=== PATIENT | male | born 1950 | race Two or more races ===

== ENCOUNTER 2019-04-16 15:02 | Inpatient (IN) | payer MEDICARE, MEDICAID ==
[~2019-04-16] VITALS: Ht 167.6 cm; Wt 89.4 kg
--- NOTE | 2019-04-16 15:21 | NUR ---
BIB DAUGHTER C/O CHEST PRESSURE x 2 DAYS RADIATING TO UPPER BACK. 6/10 PS. TO ER BED 2, HOOKED TO WEIGHT SHIFTER, CHANGED TO HOSPITAL GOWN, PROVIDED W WARM BLANKET , PATIENT AOX4 , BREATHING EVEN AND UNLABORED. AWAITING MD PARMAR.
[2019-04-16] MEDS ORDERED: ASPIRIN 81 MG TAB.CHEW PO ONE (15:30)
[2019-04-16] MEDS ORDERED: MORPHINE SULFATE INJ 2 MG/ML DISP.SYRIN IV ONE (15:30)
[2019-04-16] MEDS ORDERED: ASPIRIN 81 MG TAB.CHEW ONE ×2 (15:40→15:44)
[2019-04-16] MEDS ORDERED: MORPHINE SULFATE INJ 2 MG/ML DISP.SYRIN ONE (15:40)
[2019-04-16 15:42] LABS: BASOPHILS % (AUTO) 0.7 % (0.0-2.0); HEMATOCRIT 44 % (39-51); HEMOGLOBIN 14.7 g/dL (13.5-17.5); LYMPHOCYTES # (AUTO) 1.6 /CMM (0.8-4.8); LYMPHOCYTES % (AUTO) 26.5 % (20.0-44.0); MEAN CORPUSCULAR HGB CONC 34 g/dl (31.0-36.0); MEAN CORPUSCULAR VOLUME 101 fL (80-96); MONOCYTES # (AUTO) 0.6 /CMM (0.1-1.30); NEUTROPHILS # (AUTO) 3.6 /CMM (1.8-8.9); NEUTROPHILS % (AUTO) 60.8 % (43.0-81.0); PLATELET COUNT (AUTO) 209 /CMM (150-450); RED BLOOD CELL COUNT(AUTO) 4.33 MIL/uL (4.5-6.0); WHITE BLOOD COUNT (AUTO) 5.8 K/uL (4.3-11.0)
[2019-04-16 15:58] LABS: D-DIMER 0.48 mg/L(FEU (0.17-0.50)
[2019-04-16 16:03] LABS: CALCIUM, SERUM 8.6 mg/dL (8.5-10.1); CARBON DIOXIDE 28 mmol/L (21-32); CHLORIDE 101 mmol/L (98-107); CREATININE 0.8 mg/dL (0.6-1.3); GLUCOSE 100 mg/dL (74-106); POTASSIUM 3.7 mmol/L (3.5-5.1); SODIUM SERUM 140 mmol/L (136-145); UREA NITROGEN, BLOOD 11 mg/dL (7-18)
[2019-04-16 16:15] LABS: ALANINE AMINOTRANSFERASE 85 U/L (12-78); ALBUMIN 3.8 g/dL (3.4-5.0); ALKALINE PHOSPHATASE 75 U/L (46-116); ASPARTATE AMINOTRANSFERASE 54 U/L (15-37); B-TYPE NATRIURETIC PEPTIDE 126 PG/ML (0-125); BILIRUBIN,DIRECT 0.1 mg/dL (0.0-0.2); BILIRUBIN,TOTAL 0.4 mg/dL (0.2-1.0); TOTAL PROTEIN, SERUM 8.2 g/dL (6.4-8.2)
[2019-04-16] MEDS ORDERED: CT SWABBABLE VALVE TRANS SET 1 EA INFUS.SET MC ONE (16:17)
[2019-04-16] MEDS ORDERED: IOHEXOL-300 100 ML VIAL IV ONE (16:17)
[2019-04-16] MEDS ORDERED: IV NS 0.9% 250 ML IV ONE (16:18)
--- NOTE | 2019-04-16 16:22 | NUR ---
patient in bed, awake, denies chest pain. hooked to monitor, noted w elevated blood pressure. made md aware. will continue to monitor accordingly. kept safe, warm and comfortable.
[2019-04-16] MEDS: LISINOPRIL (10MG) 10 MG TABLET PO SCH (17:20)
--- NOTE | 2019-04-16 18:28 | NUR ---
PANEL PEDIGREE RESEARCHER PAGED THRU EXCHANGE
--- NOTE | 2019-04-16 18:34 | NUR ---
GAS DISTRIBUTION SUPERVISOR/MED RECON UNABLE TO UPDATE HOME MEDICATION INFO. PATIENT AND AT BEDSIDE, UNABLE TO PROVIDE ANY INFO. PREFERRED PHARMACY IS CLOSED AT THIS TIME. PER , SHE WILL BRING ALL MEDICATION SUPPLY FROM HOME LATER OR TOMORROW.
--- NOTE | 2019-04-16 18:37 | NUR ---
PCP DR KIMBER ENG [phone]
--- NOTE | 2019-04-16 19:24 | NUR ---
REPORT GIVEN TO JAVON SAUCEDA FOR EBENEZER
--- NOTE | 2019-04-16 19:27 | NUR ---
DR MASON SPEAKING W PATIENT'S PCP DR ENG.
--- NOTE | 2019-04-16 19:31 | NUR ---
EPIC PAGED FOR PANEL CALL WAITING FOR CALL BACK
--- NOTE | 2019-04-16 20:44 | NUR ---
REPORT GIVEN TO KOMAL MONTES FOR EBENEZER
[2019-04-16 21:07] VITALS: BP 186/97
--- NOTE | 2019-04-16 21:08 | NUR ---
DENTAL LABORATORY TECHNOLOGY TEACHER NOTES PATIENT ARRIVED ON THE UNIT AT 2047 VIA GURNEY. TRANSFERRED FROM ER, REPORT GIVEN BY KOMAL ALEJANDRO. PATIENT IS A/O X 4. MOSTLY WELSH SPEAKING. FAMILY AT BED SIDE, ABLE TO TRANSLATE AND GIVE INFORMATION ABOUT PATIENT. PATIENT WISHES TO BE FULL CODE. PATIENT IS AMBULATORY. PATIENT AND FAMILY UNABLE TO GIVE INFORMATION ON HOME MEDICATION, EXCEPT THAT HE TAKES BLOOD PRESSURE MEDICATION, UNSURE WHICH BLOOD PRESSURE MEDICATION. VITAL SIGNS: 186/97, HR 89, TEMP 98.3, O2 SAT 98% ON ROOM AIR, RR20, PATIENT WEIGHTS 197 LBS VIA BED SCALE. BELONGINGS CHECKLIST DONE BY ELSA QUINTANILLA. PATIENT DENIES ANY FORM OF PAIN AT THIS TIME 0. PAGED DR. CALLES FOR ADMISSION ORDERS. DR. CALLES STATES HE WILL INPUT ADMISSION ORDERS WHEN HE CAN PER CHARGE NURSEADAMARIS. SAFETY PRECAUTIONS IMPLEMENTED; CALL LIGHT WITHIN REACH, BED LOWEST POSITION, BED LOCKED, BILATERAL UPPER SIDE RAILS UP. WILL CONTINUE TO MONITOR.
--- NOTE | 2019-04-16 21:13 | NUR ---
[address] CALLES REGARDING ADMISSION ORDERS HE SAID HE WILL WRITE ORDERS IN A FEW MINUTES.
[2019-04-16] MEDS ORDERED: ONDANSETRON HCL/PF 4 MG/2 ML VIAL IVP PRN (21:30)
[2019-04-16] MEDS ORDERED: ENOXAPARIN SODIUM 40 MG/0.4 ML DISP.SYRIN SQ SCH (21:30)
[2019-04-16] MEDS ORDERED: Z GUARD REMEDY 2 OZ OINT TP PRN (21:30)
[2019-04-16] MEDS ORDERED: MAG HYDROX/AL HYDROX/SIMETH 30 ML UDC PO PRN (21:30)
[2019-04-16] MEDS ORDERED: HYDROCODONE/APAP 5/325MG 1 EACH TABLET PO PRN (21:30)
[2019-04-16] MEDS ORDERED: hydrALAZINE HCL IV 20 MG VIAL IV PRN (21:30)
[2019-04-16] MEDS ORDERED: ACETAMINOPHEN 325 MG TABLET PO PRN (21:30)
[2019-04-16] MEDS ORDERED: MAGNESIUM HYDROXIDE 30 ML UDC PO PRN (21:30)
--- NOTE | 2019-04-16 21:50 | NUR ---
RN NOTES 2470 HYDRALAZINE GIVEN FOR HIGH BLOOD PRESSURE >170 SBP. WILL CONTINUE TO MONITOR.
[2019-04-16 22:33] VITALS: BP 169/87
--- NOTE | 2019-04-16 22:36 | NUR ---
RN NOTES 1264 PATIENT REQUESTED MEDICATION STATED FOR PAIN THROUGHOUT BODY. STATES HE WANTS TO GET REST.
[2019-04-17] VITALS: BP 155/91
--- NOTE | 2019-04-17 00:30 | NUR ---
RN NOTES 0030 PATIENT REQUESTED SOMETHING FOR SLEEP. OFFERED AMBIEN MEDICATION FOR SLEEP.
[2019-04-17] MEDS: ZOLPIDEM TARTRATE 5 MG TABLET PO PRN (00:31)
[2019-04-17 04:00] VITALS: BP 136/85
--- NOTE | 2019-04-17 06:53 | NUR ---
RN CLOSING NOTES PATIENT IS CURRENTLY RESTING IN BED, EASILY AWAKENED. NO SIGNS OF RESPIRATORY DISTRESS, BREATHING EVEN AND UNLABORED. NO SHORTNESS OF BREATH NOTED. PATIENT NOTED TO BE AMBULATING AROUND HIS ROOM AND STRETCHING HIS UPPER EXTREMITIES, WITNESSED BY SOCORRO, ELSA, AND MYSELF. NO COMPLAINTS OF ANY FOR OF PAIN AT THIS TIME. ON TELE MONITOR. ALL DUE MEDICATION GIVEN, WELL PRN MEDICATION FOR HIGH BLOOD PRESSURE, AND SLEEP. PATIENT REFUSED AM LAB DRAW, PER FIOR, FROM LAB, SOMEONE WILL REATTEMPT TO DRAW BLOOD FOR LAB. SAFETY PRECAUTIONS IMPLEMENTED; CALL LIGHT WITHIN REACH, BED LOCKED, BED LOWEST POSITION, BILATERAL UPPER SIDE RAILS UP. WILL CONTINUE TO MONITOR FOR NOW, THEN WILL ENDORSE TO DAY SHIFT NURSE FOR CONTINUITY OF CARE.
--- NOTE | 2019-04-17 07:20 | NUR ---
CURB HOP NOTES RECEIVED PATIENT A/O X4 LATVIAN SPEAKER. LAC #18 PATENT AND FLUSHED WITH NS WELL. SINUS TACH 101. NO PAIN OR SOB NOTED AT THIS TIME. BED LOCKED IN THE LOWEST POSITION, CALL LIGHT WITHIN REACH. WILL CONTINUE TO MONITOR.
[2019-04-17 08:00] VITALS: BP 148/94
[2019-04-17] MEDS: LISINOPRIL (10MG) 10 MG TABLET PO SCH (09:20)
[2019-04-17] MEDS: ASPIRIN EC 81 MG TABLET.DR PO SCH (09:20)
[2019-04-17 09:27] LABS: BASOPHILS # (AUTO) 0.1 /CMM (0.0-0.2); BASOPHILS % (AUTO) 1.2 % (0.0-2.0); HEMATOCRIT 45 % (39-51); LYMPHOCYTES # (AUTO) 1.4 /CMM (0.8-4.8); LYMPHOCYTES % (AUTO) 18.8 % (20.0-44.0); MEAN CORPUSCULAR HGB CONC 34 g/dl (31.0-36.0); MEAN CORPUSCULAR VOLUME 101 fL (80-96); MONOCYTES % (AUTO) 13.2 % (2.0-12.0); NEUTROPHILS % (AUTO) 65.8 % (43.0-81.0); PLATELET COUNT (AUTO) 223 /CMM (150-450); RED BLOOD CELL COUNT(AUTO) 4.42 MIL/uL (4.5-6.0); WHITE BLOOD COUNT (AUTO) 7.6 K/uL (4.3-11.0)
[2019-04-17 09:44] LABS: CALCIUM, SERUM 8.6 mg/dL (8.5-10.1); MAGNESIUM 1.7 mg/dL (1.8-2.4); PHOSPHORUS 2.9 mg/dL (2.5-4.9); POTASSIUM 3.8 mmol/L (3.5-5.1)
--- NOTE | 2019-04-17 11:24 | NUR ---
GEOLOGICAL SURVEY FIELD ASSISTANT NOTES EXPLAINED THE CT WITH CONTRAST TO PATIENT AND HE REFUSED THE PROCEDURE.
[2019-04-17 12:00] VITALS: BP 166/92
[2019-04-17] MEDS ORDERED: ASPI-1152 PO (12:27)
[2019-04-17] MEDS ORDERED: LISI10TA5 PO (12:27)
[2019-04-17] MEDS ORDERED: APIX5TAB PO (12:27)
[2019-04-17 16:00] VITALS: BP 148/81
[2019-04-17] MEDS: APIXABAN 5 MG TABLET PO SCH (17:09)
[2019-04-17] MEDS ORDERED: CT SWABBABLE VALVE TRANS SET 1 EA INFUS.SET MC ONE (18:12)
[2019-04-17] MEDS ORDERED: IV NS 0.9% 250 ML IV ONE (18:12)
[2019-04-17] MEDS ORDERED: IOHEXOL-350 100 ML VIAL IV ONE (18:12)
[2019-04-17] MEDS ORDERED: METOPROLOL TARTRATE INJ 5 MG/5 ML AMPUL ONE ×2 (18:30→18:54)
[2019-04-17] MEDS ORDERED: NITROGLYCERIN 0.4 MG/TAB BOTTLE SL PRN (18:30)
[2019-04-17] MEDS: METOPROLOL TARTRATE INJ 5 MG/5 ML AMPUL IVP PRN ×10 (18:35→19:20)
--- NOTE | 2019-04-17 19:00 | NUR ---
TEACHER DANCING OPENING NOTES Patient on radiology for CT scan.
--- NOTE | 2019-04-17 19:45 | NUR ---
NAVAL AIRCREWMAN OPERATOR NOTES Patient back from radiology via wheelchair. On RA, no SOB/respiratory distress noted. Denies any discomfort at this time. Ambulatory, self-care independent. On tele monitor with NSR noted. Kept on bed clean, dry and comfortable. Call light within easy reach. Will continue to monitor accordingly.
[2019-04-17 20:00] VITALS: BP 144/90
--- NOTE | 2019-04-17 20:16 | NUR ---
ROUGHER FOR CEMENT NOTES Patient requested MOM due to negative BM for a few days. Administered as ordered.
[2019-04-17] MEDS ORDERED: ENOXAPARIN SODIUM 40 MG/0.4 ML DISP.SYRIN SQ SCH (21:00)
--- NOTE | 2019-04-17 21:22 | NUR ---
TEACHING PASTOR NOTES Patient refused the scheduled blood drawn for Trop I. Patient became agitated, angry to staff, removed his ID munoz and wanting to go home. Called to daughter Kelsey to notify the situation. Per daughter and patient, no blood drawn this evening. Patient is pacing and yelling. Also patient refused tele monitor. Last rhythm was NSR. notified.
--- NOTE | 2019-04-17 22:20 | NUR ---
INSURANCE PREMIUM AUDITOR NOTES Reoffered to put on the tele monitor, patient refused despite education and still irate. Will continue to monitor and reoffer again the use of tele monitor.
[2019-04-18] VITALS: BP 157/86
--- NOTE | 2019-04-18 05:10 | NUR ---
RADIATION CONTROL WORKER NOTES Patient refused v/s check and tele monitor despite education provided. Patient on RA, no SOB/respiratory distress noted, denies any discomfort at this time.
--- NOTE | 2019-04-18 06:20 | NUR ---
MIXING PLACE SUPERVISOR CLOSING NOTES Patient intermittently asleep, easily awaken. All nursing needs attended. Patient remained in his room, but refused the use of tele monitor. Kept on bed clean, dry and comfortable. Call light within easy reach. On fall and aspiration precautions. Endorsed to the next shift.
--- NOTE | 2019-04-18 07:25 | NUR ---
TELE/RN OPENING NOTES RECEIVED PATIENT IN BED SLEEPING COMFORTABLY. EASILY AROUSABLE. PATIENT IS ALERT AND ORIENTED X4, GUAMANIAN SPEAKING. NO PAIN OR ACUTE DISTRESS AT THIS TIME. RESPIRATION EVEN AND UNLABORED. SKIN IS DRY WARM TO TOUCH. PATIENT NOTED WITH IV ACCESS ON LAC #18G. INTACT AND PATENT. FLUSHING WELL. NO S/S OF INFECTION OR INFILTRATION. PATIENT CONTINUES TO REFUSE TELE MONITORING. EXPLAINED RISK AND BENEFITS. ALL NEEDS ANTICIPATED. CALL LIGHT WITHIN REACHED. BED LOCKED AND IN LOWEST POSITION. SAFETY MAINTAINED. PLAN OF CARE DISCUSSED. WILL CONTINUE TO MONITOR CLOSELY.
[2019-04-18 08:00] VITALS: BP 153/89
[2019-04-18] MEDS: LISINOPRIL (10MG) 10 MG TABLET PO SCH (10:27)
[2019-04-18] MEDS: ASPIRIN EC 81 MG TABLET.DR PO SCH (10:27)
[2019-04-18] MEDS: APIXABAN 5 MG TABLET PO SCH ×2 (10:28→16:11)
[2019-04-18 16:00] VITALS: BP 154/65
--- NOTE | 2019-04-18 17:51 | NUR ---
TELE/RN NOTES DR. LOVE IN THE UNIT, READ THE RESULTS OF THE CTCA. ACCORDING TO HIM PATIENT NEEDS TO BE TRANSFERRED TO FOUNDRY TENDER. DR. LOVE SPOKE TO THE PATIENT AND HE IS ON BOARD. PER DR. LOVE HE WILL TALK TO THE STEEL SPAR OPERATOR TO ARRANGE FOR HIS TRANSFER TO FOUNDRY TENDER. PATIENT CONTINUES TO REMAIN IN STABLE CONDITION. WILL CONTINUE TO MONITOR CLOSELY.
--- NOTE | 2019-04-18 19:28 | NUR ---
TELE/RN CLOSING NOTES PATIENT CONTINUES TO REMAIN IN STABLE CONDITION THROUGHOUT THE SHIFT. PROVIDED COMFORT AND SAFETY. PATIENT NOTED WITH IV ACCESS ON LAC #18G. INTACT AND PATENT. FLUSHING WELL. NO S/S OF INFECTION OR INFILTRATION. PATIENT CONTINUES TO REFUSE TELE MONITORING. EXPLAINED RISK AND BENEFITS. STILL AWAITING FOR CM REGARDING THE TRANSFER TO OFFSHORING MANAGER. ENDORSED TO PM NURSE. ALL NEEDS ANTICIPATED. CALL LIGHT WITHIN REACHED. BED LOCKED AND IN LOWEST POSITION. SAFETY MAINTAINED. PLAN OF CARE DISCUSSED. WILL CONTINUE TO MONITOR CLOSELY.
--- NOTE | 2019-04-18 19:54 | NUR ---
Recieved alert and orientated speech clear denies pain. He stated from MD that Sunday the procedure will be done he recieved a call and spoke to the MD on phone.
[2019-04-18 20:00] VITALS: BP_SYST 146; BP_SYST 148; BP_DIAS 70; BP_DIAS 82
[2019-04-18] MEDS: ZOLPIDEM TARTRATE 5 MG TABLET PO PRN (22:15)
--- NOTE | 2019-04-19 05:12 | NUR ---
CLOSING NOTES: GIVEN ABADIEN . EFFECTIVE FOR HIS SLEEP. REMAINS ON THE MONITOR HRT RATE 68 -78. AMBULATED IN THE HALLWAY STEADY ON HIS LEGS, NO SOB, NO C/O CHESTPAIN, SMILING. STATED HE SPOKE TO HIS DOCTOR AND THAT H WON'T DO ANYTHING 'TIL SUNDAY. HE COMMENTED THAT THIS WAS OKAY.
--- NOTE | 2019-04-19 07:44 | NUR ---
RN OPENING NOTES RECEIVED PATIENT RESTING COMFORTABLY IN BED. HE IS AOX4, VERBAL, AND AMBULATORY. HE IS ON 2L OF OXYGEN VIA NC, TOLERATING WELL. PT DOES NOT REQUIRE O2 BUT FEELS MORE COMFORTABLE WITH OXYGEN. HE DENIES ANY SOB OR RESP DISTRESS. LUNG COBURN CLEAR UPON AUSCULTATION. PT STATES HE HAS PAIN IN FLANK AREA WHEN COUGHING, WILL MAKE MD AWARE. SKIN IS INTACT. TELE MONITOR SHOWING SR. CARDIAC DIET, TOLERATING WELL. IV SITE ON LFA 20 G IS PATENT AND INTACT. SAFETY MEASURES HAVE BEEN IMPLEMENTED, CALL LIGHT IS WITHIN REACH, BED IS IN LOWEST AND LOCKED POSITION, SIDE RAILS UP X2, WILL CONTINUE TO MONITOR FOR ANY CHANGES.
[2019-04-19 08:00] VITALS: BP 153/95
[2019-04-19] MEDS: APIXABAN 5 MG TABLET PO SCH ×2 (08:28→16:18)
[2019-04-19] MEDS: ASPIRIN EC 81 MG TABLET.DR PO SCH (08:30)
[2019-04-19] MEDS: LISINOPRIL (10MG) 10 MG TABLET PO SCH (08:33)
[2019-04-19 12:00] VITALS: BP 149/86
--- NOTE | 2019-04-19 14:09 | NUR ---
RN NOTES TRANSFER REPORT GIVEN TO WILL RN AT [facility]
[2019-04-19 15:50] LABS: CALCIUM, SERUM 8.8 mg/dL (8.5-10.1); CREATININE 0.9 mg/dL (0.6-1.3); MAGNESIUM 2.2 mg/dL (1.8-2.4); POTASSIUM 3.6 mmol/L (3.5-5.1)
[2019-04-19 16:00] VITALS: BP 126/77
--- NOTE | 2019-04-19 17:47 | NUR ---
RN NOTES PATIENT HAS BEEN PICKED UP BY EMT AND IS TO BE TRANSFERRED TO [facility]. EXIT CARE WAS UTILIZED DURING THE DC PROCESS, PT FAMILY MADE AWARE OF TRANSFER. PT VERBALIZED FULL UNDERSTANDING OF PLAN OF CARE. BELONGINGS LIST WAS CHECKED OFF
== END 2019-04-19 17:45 | disposition short-term general hospital (02) | DRG 303 ==
LOC: ER 15:07 → TELE1 20:09
PROVIDERS: ADMIT Hospitalist
DX: I25.10 Atherosclerotic heart disease of native coronary artery without angina pectoris (principal); I10 Essential (primary) hypertension; K44.9 Diaphragmatic hernia without obstruction or gangrene; E66.01 Morbid (severe) obesity due to excess calories; Z68.31 Body mass index [BMI] 31.0-31.9, adult; E78.5 Hyperlipidemia, unspecified; N40.0 Benign prostatic hyperplasia without lower urinary tract symptoms; Z79.82 Long term (current) use of aspirin; Z79.01 Long term (current) use of anticoagulants; F10.10 Alcohol abuse, uncomplicated; Y90.0 Blood alcohol level of less than 20 mg/100 ml; I48.0 Paroxysmal atrial fibrillation; K76.0 Fatty (change of) liver, not elsewhere classified; I73.9 Peripheral vascular disease, unspecified; M48.00 Spinal stenosis, site unspecified
CPT/HCPCS: 36415; 70450-TC; 71045-TC; 71260-TC; 75574; 80048-TC; 80061-TC; 80076-TC; 83735-TC; 83880; 84100-TC; 84484-TC; 85025-TC; 85378-TC; 85730-TC; 87081-TC; 93307-TC; C1751; G0378; G0480; J0360; J1650; J2270; J3490; J7050; Q9967

== ENCOUNTER 2022-07-19 00:52 | Emergency (ER) | payer MEDICARE, OTHER ==
[~2022-07-19] VITALS: Ht 167.6 cm; Wt 89.4 kg
[~2022-07-19 00:52] MED LIST: APIX5TAB PO; ASPI-1420 PO; LISI10TA29 PO
[2022-07-19 00:54] VITALS: BP 135/102
--- NOTE | 2022-07-19 00:54 | NUR ---
[id number] from home, call for ETOH, with low bp on scene. 70/40 awake/alert on arrival. PT A/OX3. SAFETY MEASURES IN PLACE.
--- NOTE | 2022-07-19 01:16 | NUR ---
PATIENT IS A, OX4. AND ABULATORY WITH STEADY GAITS, PO INTAKE TOLERATED WELL. STATED HE'S FEELING WELL AND REQUESTING TO GO HOME. AWARE
--- NOTE | 2022-07-19 01:23 | NUR ---
Patient discharged to home in stable condition and picked up by Shantel [phone]. Written and verbal after care instructions given. Patient verbalizes understanding of instruction.
== END 2022-07-19 01:29 | disposition home or self-care (01) ==
LOC: ER 00:53
DX: F10.129 Alcohol abuse with intoxication, unspecified (principal); I10 Essential (primary) hypertension; K21.9 Gastro-esophageal reflux disease without esophagitis; Z79.899 Other long term (current) drug therapy; Z79.82 Long term (current) use of aspirin; Y90.9 Presence of alcohol in blood, level not specified